=== PATIENT | female | born 1960 | race Caucasian/White ===

== ENCOUNTER 2019-07-06 19:35 | Emergency (ER) | payer SELFPAY ==
[2019-07-06] MEDS ORDERED: NA CHLORIDE 0.9% 1,000 ML ONE ×2 (20:05→20:49)
[2019-07-06] MEDS ORDERED: ONDANSETRON 4 MG/2 ML VIAL ONE (20:05)
[2019-07-06 20:21] LABS: Absolute Lymphocytes (CBC) 1.9 K/uL (0.7-4.9); Hematocrit 37.2 % (36.0-45.0); Lymphocytes % 26.2 % (15.3-44.8); MPV 8.1 fL (7.6-11.3); RBC Red Blood Cell Count 3.82 M/uL (3.86-4.86)
[2019-07-06 20:32] LABS: Potassium 4.8 mmol/L (3.5-5.1)
[2019-07-06 20:56] LABS: Urine Blood 1+ (NEG); Urine Glucose NEGATIVE (NEG); Urine Protein 1+ (NEG); Urine Specific Gravity 1.015 (1.005-1.030); Urine pH 5.5 (5.0-7.0)
[2019-07-06 21:06] LABS: Urine Bacteria >50 /HPF (<20)
[2019-07-06 21:07] LABS: Urine Culture Reflex Order NOT NEEDED; Urine Mucus 2+ /HPF (NONE SEEN)
[2019-07-06] MEDS ORDERED: NITROFURAN MACRO 100 MG CAP PO ONE (21:13)
--- NOTE | 2019-07-06 22:32 | ER ---
Nurse's Notes [facility] Name: Imelda Cope Age: 58 yrs Sex: Female : 1960 Arrival Date: 07/06/2019 Time: 19:37 Bed 6 Private MD: Diagnosis: Dehydration;Urinary tract infection, site not specified Presentation: 07/06 19:38 Presenting complaint: Patient states: symptoms gets worse whenever I moved or stands. rv EMS states: she is on three days detox today from opioids abuse. she started feeling weak and not been eating well since the start of the detox. today at the [facility], her blood pressure dropped to as low as 70s systolic, and when we checked her pressure is at 90s systolic. Transition of care: patient was not received from another setting of care. Onset of symptoms was July 06, 2019 at 19:00. Risk Assessment: Do you want to hurt yourself or someone else? Patient reports no desire to harm self or others. Initial Sepsis Screen: Does the patient meet any 2 criteria? No. Patient's initial sepsis screen is negative. Does the patient have a suspected source of infection? No. Patient's initial sepsis screen is negative. Care prior to arrival: None. 19:38 Method Of Arrival: EMS: [facility] rv 19:38 Acuity: SANDEE 3 rv Triage Assessment: 21:00 General: Behavior is calm, cooperative. rv Historical: - Allergies: 19:44 antihistamines (not true allergy; feels sick.); rv 19:44 Toradol (not true allergy; feels sick.); rv - Home Meds: 19:45 duloxetine 60 mg oral cpDR 1 cap once daily [Active]; tamsulosin 0.4 mg oral cp24 1 cap rv once daily [Active]; 19:55 propranolol 10 mg Oral tab 2 tabs 3 times per day [Active]; gabapentin 100 mg oral cap rv 2 caps twice a day [Active]; doxepin 25 mg Oral cap 1 cap once daily [Active]; mirtazapine 15 mg Oral tab 1 tab as needed [Active]; gabapentin 400 mg oral cap 1 cap nightly [Active]; subixone 2/0.5 mg 1 per protocol [Active]; - PMHx: 19:44 Hypertension; Anxiety; Hepatitis; Rheumatoid Arthritis; rv - PSHx: 19:44 Tubal ligation; hip sx and femur sx; back sx; Cholecystectomy; rv - Immunization history:: Adult Immunizations up to date. - Coronavirus screen:: The patient has NOT traveled to [place] in the past 14 days. Proceed with normal triage process as indicated. The patient has NOT had contact with known/suspected case of Coronavirus? Proceed with normal triage procedures. - Social history:: Smoking status: Patient reports the use of cigarette tobacco products, smokes one-half pack cigarettes per day. - Family history:: not pertinent. - Ebola Screening: : No symptoms or risks identified at this time. - Hospitalizations: : No recent hospitalization is reported. Screenin:56 Abuse screen: Denies threats or abuse. Denies injuries from another. Nutritional rv screening: No deficits noted. Tuberculosis screening: No symptoms or risk factors identified. Fall Risk None identified. Assessment: 19:55 General: Appears in no apparent distress. Pain: Complains of pain in back. Neuro: Level rv of Consciousness is awake, alert, obeys commands, Oriented to person, place, time, situation. Cardiovascular: Patient's skin is warm and dry. Respiratory: Airway is patent. Musculoskeletal: Reports weakness in generally pain in back. 20:15 Reassessment: Patient appears in no apparent distress at this time. with episodes of rv blood pressure dropping below 90s systolic, without symptoms getting worse. 20:43 Reassessment: patient is using the bedside commode. rv 22:01 Reassessment: Patient appears in no apparent distress at this time. Patient and/or jb4 family updated on plan of care and expected duration. Pain level reassessed. Patient is alert, oriented x 3, equal unlabored respirations, skin warm/dry/pink. Pt reports that the weakness has lessened. Patient states feeling better. 22:38 Reassessment: Patient appears in no apparent distress at this time. Patient and/or rv family updated on plan of care and expected duration. Pain level reassessed. Patient is alert, oriented x 3, equal unlabored respirations, skin warm/dry/pink. Patient states feeling better. Patient states symptoms have improved. 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 rv Vital Signs: 19:37 BP 95 / 69; Pulse 66; Resp 13; Temp 98.2; Pulse Ox 97% on R/A; Weight 77.11 kg; Height rv 5 ft. 4 in. (162.56 cm); Pain 6/10; 19:45 BP 79 / 62; Pulse 60; Resp 16; Pulse Ox 97% on R/A; rv 19:56 BP 89 / 66; Pulse 70; Resp 21; Pulse Ox 98% on R/A; rv 20:00 BP 90 / 68; Pulse 65; Resp 18; Pulse Ox 100% on R/A; rv 20:15 BP 87 / 76; Pulse 62; Resp 18; Pulse Ox 98% on R/A; rv 20:30 BP 81 / 59; Pulse 65; Resp 16; Pulse Ox 98% on R/A; rv 20:45 BP 106 / 76; Pulse 65; Resp 16; Pulse Ox 98% on R/A; rv 21:00 BP 106 / 73; Pulse 56; Resp 17; Pulse Ox 98% on R/A; rv 22:00 BP 94 / 68; Pulse 64; Resp 15; Pulse Ox 100% on R/A; jb4 22:30 BP 101 / 67; Pulse 58; Resp 14; Pulse Ox 100% on R/A; rv 19:37 Body Mass Index 29.18 (77.11 kg, 162.56 cm) rv 19:37 complaining of chronic back pain. rv 20:00 before NS bolus infusion rv ED Course: 19:37 Patient arrived in ED. ds1 19:37 Fermín Hylton, KARYN is Primary Nurse. rv 19:40 Zak Billy MD is Attending Physician. rn 19:42 Triage completed. rv 19:55 Arm band placed on Patient placed Patient notified of wait time. rv 19:56 Patient has correct armband on for positive identification. realty specialist on. Pulse rv ox on. NIBP on. 20:05 Inserted saline lock: 20 gauge in right forearm, using aseptic technique. Blood rv collected. 22:38 No provider procedures requiring assistance completed. IV discontinued, intact, rv bleeding controlled, No redness/swelling at site. Pressure dressing applied. Administered Medications: 20:03 Drug: NS 0.9% 1000 ml Route: IV; Rate: 1000 ml; Site: right forearm; rv 20:44 Follow up: IV Status: Completed infusion; IV Intake: 1000ml rv 20:04 Drug: Zofran 4 mg Route: IVP; Site: right forearm; rv 20:44 Follow up: Response: No adverse reaction rv 20:50 Drug: NS 0.9% 1000 ml Route: IV; Rate: 1 bolus; Site: right forearm; rv 22:38 Follow up: IV Status: Completed infusion; IV Intake: 1000ml rv 21:12 Drug: Macrobid 100 mg Route: PO; rv 22:38 Follow up: Response: No adverse reaction rv Intake: 20:44 IV: 1000ml; Total: 1000ml. rv 22:38 IV: 1000ml; Total: 2000ml. rv Outcome: 22:31 Discharge ordered by MD. rn 22:39 Discharged to Rehab Facility rv 22:39 Condition: improved 22:39 Discharge instructions given to patient, Instructed on discharge instructions, follow up and referral plans. medication usage, Demonstrated understanding of instructions, follow-up care, medications, Prescriptions given X 2. 23:06 Patient left the ED. rv Addendum: 07/09/2019 07:13 Addendum: Culture Results: Positive urine culture. No further action required. Bacteria e b sensitive to prescribed antibiotic. Signatures: Radha Pinto ds1 Zak Billy MD MD rn Bryson, James, RN RN jb4 Kerry Matthews Ronaldo, RN RN rv
--- NOTE | 2019-07-06 22:33 | EDPHYS ---
Physician Documentation [facility] Name: Imelda Cope Age: 58 yrs Sex: Female : 1960 Arrival Date: 07/06/2019 Time: 19:37 Bed 6 Private MD: ED Physician Zak Billy HPI: 07/06 20:12 This 58 yrs old Female presents to ER via EMS with complaints of Dizziness. rn 20:12 The patient presents with generalized weakness. Onset: The symptoms/episode rn began/occurred at an unknown time. Modifying factors: The symptoms are alleviated by nothing, the symptoms are aggravated by nothing. Associated signs and symptoms: Pertinent negatives: abdominal pain, chest pain, confusion, focal weakness, head injury, headache, seizure, shortness of breath, syncope. Severity of symptoms: At their worst the symptoms were mild in the emergency department the symptoms are unchanged. The patient has not experienced similar symptoms in the past. The patient has not recently seen a physician. Reports generalized weakness, over last few days, just started detox in [facility], detoxing from opiates, just started with suboxone, reports since admission has been having nausea/vomiting/diarrhea, attributes it to detoxing. No fever. No chest pain/sob/abd pain. NO focal weakness. No syncope. Reports not eating/drinking much since doesn't feel well. . Historical: - Allergies: 19:44 antihistamines (not true allergy; feels sick.); rv 19:44 Toradol (not true allergy; feels sick.); rv - Home Meds: 19:45 duloxetine 60 mg oral cpDR 1 cap once daily [Active]; tamsulosin 0.4 mg oral cp24 1 cap rv once daily [Active]; 19:55 propranolol 10 mg Oral tab 2 tabs 3 times per day [Active]; gabapentin 100 mg oral cap rv 2 caps twice a day [Active]; doxepin 25 mg Oral cap 1 cap once daily [Active]; mirtazapine 15 mg Oral tab 1 tab as needed [Active]; gabapentin 400 mg oral cap 1 cap nightly [Active]; subixone 2/0.5 mg 1 per protocol [Active]; - PMHx: 19:44 Hypertension; Anxiety; Hepatitis; Rheumatoid Arthritis; rv - PSHx: 19:44 Tubal ligation; hip sx and femur sx; back sx; Cholecystectomy; rv - Immunization history:: Adult Immunizations up to date. - Coronavirus screen:: The patient has NOT traveled to [place] in the past 14 days. Proceed with normal triage process as indicated. The patient has NOT had contact with known/suspected case of Coronavirus? Proceed with normal triage procedures. - Social history:: Smoking status: Patient reports the use of cigarette tobacco products, smokes one-half pack cigarettes per day. - Family history:: not pertinent. - Ebola Screening: : No symptoms or risks identified at this time. - Hospitalizations: : No recent hospitalization is reported. ROS: 20:12 Constitutional: Negative for fever, chills, and weight loss, Eyes: Negative for injury, rn pain, redness, and discharge, Neck: Negative for injury, pain, and swelling, Cardiovascular: Negative for chest pain, palpitations, and edema, Respiratory: Negative for shortness of breath, cough, wheezing, and pleuritic chest pain, Abdomen/GI: Negative for abdominal pain, and constipation, Back: Negative for injury and pain, : Negative for injury, bleeding, discharge, and swelling, MS/Extremity: Negative for injury and deformity, Skin: Negative for injury, rash, and discoloration, Neuro: Negative for headache, numbness, tingling, and seizure. Exam: 20:12 Constitutional: This is a well developed, well nourished patient who is awake, alert, rn and in no acute distress. Head/Face: Normocephalic, atraumatic. ENT: dry MM Neck: Trachea midline, no thyromegaly or masses palpated, and no cervical lymphadenopathy. Supple, full range of motion without nuchal rigidity, or vertebral point tenderness. No Meningismus. Cardiovascular: Regular rate and rhythm. No pulse deficits. Respiratory: Lungs have equal breath sounds bilaterally. No increased work of breathing, no retractions or nasal flaring. Abdomen/GI: soft, non-tender, non-distended Back: No spinal tenderness. No costovertebral tenderness. Full range of motion. MS/ Extremity: Pulses equal, no cyanosis. Neurovascular intact. Full, normal range of motion. Equal circumference. Neuro: Awake and alert, GCS 15, oriented to person, place, time, and situation. Cranial nerves II-XII grossly intact. Motor strength 5/5 in all extremities. Sensory grossly intact. Cerebellar exam normal. 20:16 ECG was reviewed by the Attending Physician. rn Vital Signs: 19:37 BP 95 / 69; Pulse 66; Resp 13; Temp 98.2; Pulse Ox 97% on R/A; Weight 77.11 kg; Height rv 5 ft. 4 in. (162.56 cm); Pain 6/10; 19:45 BP 79 / 62; Pulse 60; Resp 16; Pulse Ox 97% on R/A; rv 19:56 BP 89 / 66; Pulse 70; Resp 21; Pulse Ox 98% on R/A; rv 20:00 BP 90 / 68; Pulse 65; Resp 18; Pulse Ox 100% on R/A; rv 20:15 BP 87 / 76; Pulse 62; Resp 18; Pulse Ox 98% on R/A; rv 20:30 BP 81 / 59; Pulse 65; Resp 16; Pulse Ox 98% on R/A; rv 20:45 BP 106 / 76; Pulse 65; Resp 16; Pulse Ox 98% on R/A; rv 21:00 BP 106 / 73; Pulse 56; Resp 17; Pulse Ox 98% on R/A; rv 22:00 BP 94 / 68; Pulse 64; Resp 15; Pulse Ox 100% on R/A; jb4 22:30 BP 101 / 67; Pulse 58; Resp 14; Pulse Ox 100% on R/A; rv 19:37 Body Mass Index 29.18 (77.11 kg, 162.56 cm) rv 19:37 complaining of chronic back pain. rv 20:00 before NS bolus infusion rv MDM: 19:40 Patient medically screened. rn 22:29 Differential diagnosis: hypovolemia, UTI. Data reviewed: vital signs, nurses notes, laboratory apparatus glass grinder test result(s), EKG, and as a result, I will discharge patient. Counseling: I had a detailed discussion with the patient and/or guardian regarding: the historical points, exam findings, and any diagnostic results supporting the discharge/admit diagnosis, lab results, the need for outpatient follow up, to return to the emergency department if symptoms worsen or persist or if there are any questions or concerns that arise at home. Response to treatment: the patient's symptoms have markedly improved after treatment, and as a result, I will discharge patient. Special discussion: I discussed with the patient/guardian in detail that at this point there is no indication for admission to the hospital. It is understood, however, that if the symptoms persist or worsen the patient needs to return immediately for re-evaluation. ED course: BP improved, asymptomatic, 2L bolus for dehydration likely 2/2 to detox, and abx given for UTI. Normal WBC, no signs of sepsis. Will dc home with zofran prn and abx for UTI. REturn precautions given and understood. . 07/06 19:41 Order name: CBC with Diff 07/06 19:41 Order name: Basic Metabolic Panel 07/06 19:41 Order name: Urine Microscopic Only 07/06 20:23 Order name: CBC with Automated Diff; Complete Time: 21:00 EDMS 07/06 20:33 Order name: Basic Metabolic Panel; Complete Time: 21:00 EDVT 07/06 20:52 Order name: Urine Dipstick--Ancillary (enter results) nj 07/06 19:41 Order name: EKG; Complete Time: 19:42 rn 07/06 20:58 Order name: Urine Dipstick-Ancillary; Complete Time: 21:00 EDVT 07/06 21:00 Order name: Urine Culture 07/06 21:09 Order name: Urine Microscopic Only; Complete Time: 22:07 EDVT 07/06 19:41 Order name: IV Start; Complete Time: 20:05 rn 07/06 19:41 Order name: Urine Dipstick-Ancillary (obtain specimen); Complete Time: 21:14 07/06 19:41 Order name: EKG - Nurse/Tech; Complete Time: 19:56 rn EC:16 Rate is 65 beats/min. Rhythm is regular. QRS [place] is Normal. [place] interval is normal. QRS rn interval is normal. QT interval is normal. No Q waves. T waves are Normal. No ST changes noted. Clinical impression: Normal ECG. Interpreted by me. Reviewed by me. Administered Medications: 20:03 Drug: NS 0.9% 1000 ml Route: IV; Rate: 1000 ml; Site: right forearm; rv 20:44 Follow up: IV Status: Completed infusion; IV Intake: 1000ml rv 20:04 Drug: Zofran 4 mg Route: IVP; Site: right forearm; rv 20:44 Follow up: Response: No adverse reaction rv 20:50 Drug: NS 0.9% 1000 ml Route: IV; Rate: 1 bolus; Site: right forearm; rv 22:38 Follow up: IV Status: Completed infusion; IV Intake: 1000ml rv 21:12 Drug: Macrobid 100 mg Route: PO; rv 22:38 Follow up: Response: No adverse reaction rv Disposition: 07/06/19 22:31 Discharged to Home. Impression: Dehydration, Urinary tract infection, site not specified. - Condition is Stable. - Discharge Instructions: Dehydration, Adult, Urinary Tract Infection, Adult. - Prescriptions for Zofran ODT 4 mg Oral tablet,disintegrating - place 1 tablet by TRANSLINGUAL route every 8 hours As needed; 20 tablet. Macrobid 100 mg Oral Capsule - take 1 capsule by ORAL route every 12 hours for 7 days; 14 capsule. - Medication Reconciliation Form, Thank You Letter, Antibiotic Education, Prescription Opioid Use form. - Follow up: Private Physician; When: As needed; Reason: Recheck today's complaints, Re-evaluation by your physician. - Problem is new. - Symptoms have improved. Signatures: Dispatcher [employer] EDMS Zak Billy MD MD rn Vicente, Ronaldo, RN RN rv Corrections: (The following items were deleted from the chart) 23:06 22:31 07/06/2019 22:31 Discharged to Home. Impression: Dehydration; Urinary tract rv infection, site not specified. Condition is Stable. Forms are Medication Reconciliation Form, Thank You Letter, Antibiotic Education, Prescription Opioid Use. Follow up: Private Physician; When: As needed; Reason: Recheck today's complaints, Re-evaluation by your physician. Problem is new. Symptoms have improved. rn
--- NOTE | 2019-07-07 09:23 | EKG ---
Test Date: 2019-07-06 Test Time: 19:54:23 Cane Burner: KYM MEASUREMENT RESULTS: Intervals: Rate: 65 MD: 134 QRSD: 82 QT: 414 QTc: 430 [place]: P: 67 MD: 134 QRS: 50 T: 64 INTERPRETIVE STATEMENTS: Normal sinus rhythm Normal ECG No previous ECG available for comparison Electronically Signed On 07-07-19 09:22:39 CHEF GERMAN by Jadiel Delarosa
[2019-07-08 04:26] VITALS: TEMP 98.2
[2019-07-08 04:39] VITALS: O2SAT 100
[2019-07-08 04:40] VITALS: BP 101/67
== END 2019-07-06 23:06 | disposition home or self-care (01) ==
LOC: ER 19:35
DX: E86.0 Dehydration (principal); N39.0 Urinary tract infection, site not specified; I10 Essential (primary) hypertension; F41.9 Anxiety disorder, unspecified; F17.210 Nicotine dependence, cigarettes, uncomplicated; Z88.6 Allergy status to analgesic agent; Z88.8 Allergy status to other drugs, medicaments and biological substances
CPT/HCPCS: 36415; 80048; 81003; 81015; 85025; 87077; 87086; 87088; 87186; 93005; 96361; 96374; 99284; J2405; J7030